=== PATIENT | female | born 1960 | race Caucasian/White ===

== ENCOUNTER → 2019-06-15 | Outpatient (REF) ==
--- NOTE | 2019-06-15 18:55 | REP ---
REASON: Disability determination. Three limited views show the disc spaces to be symmetric and relatively well maintained. The C7-T1 level can not be evaluated since no swimmer's view was obtained and it is obscured on the lateral neutral view. Vertebral body height and alignment is within normal limits. Mild to moderate hypertrophic degenerative facet and uncovertebral joint changes are present at every level bilaterally. There is a levoconvex curve which could be secondary to positional or muscular spasm. This needs to be correlated clinically. IMPRESSION:Findings and limitations as described above. Electronically Signed by Jr Lao DO 06/16/2019 09:33 A
== END ==
LOC: M SMT 13:09
PROVIDERS: ATTEND Internal Medicine
DX: Z00.00 Encounter for general adult medical examination without abnormal findings (principal)